=== PATIENT | female | born 1975 | race Hispanic/Latino ===

== ENCOUNTER → 2020-05-22 | Outpatient (CLI) | payer BC, OTHER ==
[~2020-05-22] VITALS: Ht 157.5 cm; Wt 91.6 kg
[~2020-05-22] MED LIST: AMBIEN PAK5 MG; ASPIRIN81 MG PO; CETIRIZINE HCL10 MG PO; FENTANYL CITRATE/PF 100MCG/2 ML INJ ONE; GLIPIZIDE5 MG PO; HEPARIN SOD/SOD CHLORIDE 0 ML ONE; IOPAMIDOL 370 MG/ML 200 ML INFUS..BTL INJ ONE; LANTUS 3ML100 UNITS/ SQ; LIDOCAINE HCL 2% LOCAL 20 ML VIAL ONE; METFORMIN HCL500 MG PO; METHYLDOPA250 MG PO; MIDAZOLAM HCL 2 MG/2 ML VIAL ONE; NITROGLYCERIN0.4 MG SL; NORCO; SODIUM CHLORIDE 0.9% 1000ML 0 ML ONE; SYNTHROID100 MCG PO; VERAPAMIL HCL 2.5 MG/ML 2 ML VIAL ONE
[2020-05-22 10:34] LABS: BASOPHILS # (AUTO) 0.1 (0.0-0.1); BASOPHILS % 0.7 % (0.0-1.0); EOSINOPHILS # (AUTO) 0.3 (0.0-0.4); EOSINOPHILS % 2.8 % (0.0-6.0); HEMATOCRIT 39.7 % (34.2-44.1); HEMOGLOBIN 12.8 g/dL (12.0-16.0); LYMPHOCYTES # (AUTO) 2.6 (1.0-3.2); LYMPHOCYTES % 26.3 % (18.0-39.1); MEAN CORPUSCULAR HEMOGLOBIN 26.5 pg (28-32); MEAN CORPUSCULAR HGB CONC 32.2 g/dL (31-35); MEAN CORPUSCULAR VOLUME 82.2 fL (81-99); MONOCYTES # (AUTO) 0.7 (0.2-0.8); MONOCYTES % 7.1 % (4.4-11.3); NEUTROPHILS # (AUTO) 6.1 (2.1-6.9); NEUTROPHILS % 62.8 % (38.7-80.0); PLATELET COUNT 345 x10e3/uL (140-360); RED BLOOD COUNT 4.83 x10e6/uL (3.6-5.1); RED CELL DISTRIBUTION WIDTH 16.1 % (11.7-14.4)
[2020-05-22 10:56] LABS: INR 0.86; PROTHROMBIN TIME 12.2 seconds (11.9-14.5)
[2020-05-22 11:03] LABS: ALANINE AMINOTRANSFERASE 27 IU/L (0-55); ALBUMIN 3.5 g/dL (3.5-5.0); ALKALINE PHOSPHATASE 55 IU/L (40-150); BLOOD UREA NITROGEN 11 mg/dL (7-26); BUN/CREATININE RATIO 15 (6-25); CALCIUM 8.6 mg/dL (8.4-10.2); CARBON DIOXIDE 21 mmol/L (22-29); CHLORIDE 106 mmol/L (98-107); CREATININE, SERUM 0.73 mg/dL (0.57-1.11); EST GLOMERULAR FILTRATION RATE > 60 ML/MIN (60-); GLUCOSE 150 mg/dL (74-118); SODIUM 136 mmol/L (136-145)
--- NOTE | 2020-05-24 17:30 | NUR ---
Pt contacted by phone for interview of scheduled procedure. Review of medical history and current medications. Procedural consent on day of arrival to be completed, pre-op orders, and twice bathing education completed. All questions clarified and or answered where appropriate. pt verbalizes understanding to include day of procedure expectations and practice social distancing. Pt aware to be using provided/ personal mask for COVID-19 mitigation. Pt to bring medication list day of . - [facility] – [place], [place]
[2020-05-25 10:39] VITALS: BP 122/72
== END | disposition home or self-care (01) ==
LOC: CATH LAB 10:00 → EDSTATUS 05-25 11:00
PROVIDERS: ATTEND Internal Medicine Cardiovascular Disease
DX: I25.10 Atherosclerotic heart disease of native coronary artery without angina pectoris (principal); Z01.812 Encounter for preprocedural laboratory examination; Z11.59 Encounter for screening for other viral diseases; Z53.9 Procedure and treatment not carried out, unspecified reason
CPT/HCPCS: 36415; 80053; 85025; 85610; U0002; 84702; J2001; J2250; J3010; J7030; Q9967

== ENCOUNTER 2020-07-15 19:15 | Emergency (ER) | payer BC ==
[~2020-07-15] VITALS: Ht 157.5 cm; Wt 91.6 kg
[2020-07-15] MEDS ORDERED: KETOROLAC TROMETHAMINE 30 MG/ML VIAL IV STA (19:56)
[2020-07-15] MEDS ORDERED: SODIUM CHLORIDE 0.9% 1000ML 1,000 ML IV SCH (20:00)
[2020-07-15] MEDS ORDERED: KETOROLAC TROMETHAMINE 30 MG/ML VIAL ONE (20:22)
[2020-07-15] MEDS ORDERED: SODIUM CHLORIDE 0.9% 1000ML 1,000 ML ONE (20:22)
[2020-07-15] MEDS ORDERED: HYDROCODONE/APAP 5MG-325MG TAB PO ONE (21:30)
== END 2020-07-15 22:05 | disposition home or self-care (01) ==
LOC: FSED 19:45
DX: R51.9 Headache, unspecified (principal); R03.0 Elevated blood-pressure reading, without diagnosis of hypertension; E11.9 Type 2 diabetes mellitus without complications; F41.9 Anxiety disorder, unspecified
CPT/HCPCS: 80053; 81003; 85025; 99283; J1885; J7030

== ENCOUNTER → 2020-07-15 | Emergency (ER) | payer BC ==
[~2020-07-15] MED LIST changes: -FENTANYL CITRATE/PF 100MCG/2 ML INJ ONE; -HEPARIN SOD/SOD CHLORIDE 0 ML ONE; -IOPAMIDOL 370 MG/ML 200 ML INFUS..BTL INJ ONE; -LIDOCAINE HCL 2% LOCAL 20 ML VIAL ONE; -MIDAZOLAM HCL 2 MG/2 ML VIAL ONE; -SODIUM CHLORIDE 0.9% 1000ML 0 ML ONE; -VERAPAMIL HCL 2.5 MG/ML 2 ML VIAL ONE
== END | disposition left against medical advice (07) ==
LOC: ER 19:17
DX: I10 Essential (primary) hypertension (principal)

== ENCOUNTER 2021-07-29 01:42 | Emergency (ER) | payer BC ==
[~2021-07-29] VITALS: Ht 157.5 cm; Wt 91.6 kg
[2021-07-29] MEDS ORDERED: PEPCID20 MG PO (01:52)
[2021-07-29] MEDS ORDERED: PREDNISONE50 MG PO (01:52)
[2021-07-29] MEDS ORDERED: PREDNISONE 20 MG TAB ONE ×2 (02:00→02:01)
[2021-07-29] MEDS ORDERED: PREDNISONE 10 MG TAB ONE (02:00)
[2021-07-29] MEDS ORDERED: PREDNISONE 20 MG TAB PO ONE (02:00)
== END 2021-07-29 01:55 | disposition home or self-care (01) ==
LOC: ER 01:50
DX: L50.9 Urticaria, unspecified (principal); I10 Essential (primary) hypertension; E11.8 Type 2 diabetes mellitus with unspecified complications; F41.9 Anxiety disorder, unspecified
CPT/HCPCS: 99283; J7512 ×2

== ENCOUNTER 2022-06-19 01:16 | Emergency (ER) | payer BC ==
[~2022-06-19] VITALS: Ht 157.5 cm; Wt 91.6 kg
[~2022-06-19 01:16] MED LIST changes: +PEPCID20 MG PO; +PREDNISONE50 MG PO
[2022-06-19] MEDS ORDERED: DIFLUCAN150 MG PO (02:33)
[2022-06-19] MEDS ORDERED: MONISTAT 745 GM VG (02:38)
== END 2022-06-19 03:00 | disposition home or self-care (01) ==
LOC: FSED 01:20
DX: N76.0 Acute vaginitis (principal); E11.9 Type 2 diabetes mellitus without complications; I10 Essential (primary) hypertension; E03.9 Hypothyroidism, unspecified; F41.9 Anxiety disorder, unspecified
CPT/HCPCS: 81003; 99282

== ENCOUNTER 2024-05-16 22:17 | Emergency (ER) | payer BC ==
[~2024-05-16] VITALS: Ht 157.5 cm; Wt 90.3 kg
[~2024-05-16 22:17] MED LIST changes: +BUTALB-ACETAMI1 EAC2 PO; +CEFDINIR300 MG PO; +DIFLUCAN150 MG PO; +MONISTAT 324 GM VG; +MONISTAT 745 GM VG; +TENCON 50-3251 EACH PO
[2024-05-16 22:20] VITALS: PULSE 80; RESP 18; TEMP 97.7
[2024-05-17 01:55] VITALS: BP 124/78; PULSE 62; RESP 18; TEMP 98.3; O2SAT 98
== END 2024-05-16 23:08 | disposition home or self-care (01) ==
LOC: FSED 22:24
DX: R09.81 Nasal congestion (principal); J32.9 Chronic sinusitis, unspecified; I10 Essential (primary) hypertension; E11.9 Type 2 diabetes mellitus without complications; E03.9 Hypothyroidism, unspecified; F41.9 Anxiety disorder, unspecified
CPT/HCPCS: 99283